=== PATIENT | male | born 1960 | race Caucasian/White ===

== ENCOUNTER 2024-11-28 08:30 | Inpatient (IN) | payer BC, OTHER ==
[~2024-11-28] VITALS: Ht 175.3 cm; Wt 104.5 kg
--- NOTE | 2024-11-28 09:44 | ED.PDOC ---
GI ASSESSMENT HPI Comments 63 year old male presents to the ED with chief complaint of rectal bleeding. Patient reports that he has been experiencing rectal bleeding with associated abdominal pain since yesterday. Patient relays that he had a recent colonoscopy performed [address] iDno Antony. Patient states the blood is bright red. Patient denies any N/V/D, dizziness, fever, chills, melena, or hematemesis. Chief Complaint: GI Bleed Time Seen by MD: 09:42 Reviewed Notes: Nurses Notes, Medications, Allergies Allergies: Coded Allergies: NO KNOWN ALLERGIES (Unverified , 11/28/24) Information Source: Patient Mode of Arrival: Ambulatory Timing: Days Duration: Since onset Prehospital treatment: None Quality: Cramping Vomitus: None Stool: Blood Streaked Severity: Moderate Recent: None Recent Hx of: GI Bleed Pain Location: Diffuse Modifying Factors: Nothing Associated sign and symptoms: Abdominal Pain, Blood in Stool Past Medical History PAST MEDICAL HISTORY: High Lipids, HTN Surgical History (Other): Colonoscopy Family History Family History: Reviewed,noncontributory to illness Social History Smoker: Non-Smoker Alcohol: Denies ETOH Use Drugs: Denies Drug Use Lives In: Home Constitutional: denies: chills, diaphoresis, fatigue, fever, malaise, sweats, weakness, others EENTM: denies: blurred vision, double vision, ear bleeding, ear discharge, ear drainage, ear pain, ear ringing, eye pain, eye redness, hearing loss, mouth pain, mouth swelling, nasal discharge, nose bleeding, nose congestion, nose p ain, photophobia, tearing, throat pain, throat swelling, voice changes, others Respiratory: denies: cough, hemoptysis, orthopnea, SOB at rest, shortness of breath, SOB with excertion, stridor, wheezing, others Cardiovascular: denies: chest pain, dizzy spells, diaphoresis, Dyspnea on exertion, edema, irregular heart beat, left arm pain, lightheadedness, palpitations, PND, syncope, others Gastrointestinal: reports: abdominal pain, rectal bleeding; denies: abdomen distended, blood streaked bowels, constipated, diarrhea, dysphagia, difficulty swallowing, hematemesis, melena, nausea, poor appetite, poor fluid intake, rectal pain, vomiting, others Genitourinary: denies: burning, dysuria, flank pain, frequency, hematuria, incontinence, penile discharge, penile sore, pain, testicle pain, testicle swelling, urgency, others Neurological: denies: dizziness, fainting, headache, left sided numbness, left sided weakness, numbness, paresthesia, pre-existing deficit, right sided numbness, right sided weakness, seizure, speech problems, tingling, tremors, weakness, others Musculoskeletal: denies: back pain, gout, joint pain, joint swelling, muscle pain, muscle stiffness, neck pain, others Integumetry: denies: bruises, change in color, change in hair/nails, dryness, laceration, lesions, lumps, rash, wounds, others Allergic/Immunocompromised: denies: Difficulty Healing, Frequent Infections, Hives, Itching, others Hematologic/Lymphatic: denies: anemia, blood clots, easy bleeding, easy bruising, swollen glands, others Endocrine: denies: excessive hunger, excessive sweating, excessive thirst, excessive urination, flushing, intolerance to cold, intolerance to heat, unexplained weight gain, unexplained weight loss, others Psychiatric: denies: anxiety, bipolar disorder, depression, hopeless, panic disorder, schizophrenia, sleepless, suicidal, others All Other Systems: Reviewed and Negative Physical Exam General Appearance: Moderate Distress, Normal HEENT: Normal ENT Inspection, PERRL/EOMI Neck: Full Range of Motion, Non-Tender, Normal, Normal Inspection Respiratory: Chest Non-Tender, Lungs Clear, No Accessory Muscle Use, No Respiratory Distress, Normal Breath Sounds Cardiovascular: No Edema, No JVD, No Murmur, No Gallop, Normal Peripheral Pulses, Regular Rate/Rhythm Breast Exam: Deferred Gastrointestinal: No Organomegaly, Non Tender, No Pulsatile Mass, Normal Bowel Sounds, Soft Genitalia: Deferred Pelvic: Deferred Rectal: Deferred Extremities: No calf tenderness, Normal capillary refill, Normal inspection, Normal range of motion, Non-tender, No pedal edema Musculoskeletal : Apperance: Normal Neurologic: Alert, certified personal chef II-XII nml as Tested, No Motor Deficits, Normal Affect, Normal Mood, No Sensory Deficits Cerebellar Function: Normal Reflexes: Normal Skin: Dry, Normal Color, Warm Peripheral Pulses: 3+ Radial (R), 3+ Radial (L) Lymphatic: No Adenopathy Was a procedure done? Was a procedure done?: No GI differential Dx Differential Diagnosis: Constipation, Diverticular disease, Esophagitis, Gastritis/PUD, Gastroenteritis X-Ray, Labs, Meds, VS Vital Signs Date Time Temp Pulse Resp B/P (MAP) Pulse Ox O2 Delivery O2 Flow Rate FiO2 11/28/24 08:40 98.2 81 18 152/90 (110) 98 98.2 Lab Test 11/28/24 09:30 Range/Units White Blood Count 13.1 H 4.4-10.8 10^3/uL Red Blood Count 6.02 H 4.5-5.90 10^6/uL Hemoglobin 17.1 13.5-17.5 g/dL Hematocrit 51.3 41.0-53.0 % Mean Corpuscular Volume 85.2 80.0-100.0 fL Mean Corpuscular Hemoglobin 28.4 28.0-32.0 pg Mean Corpuscular Hemoglobin Concent 33.4 32.0-36.0 g/dL Red Cell Distribution Width 14.1 11.8-14.3 % Platelet Count 267 140-450 10^3/uL Mean Platelet Volume 7.6 6.9-10.8 fL Neutrophils (%) (Auto) 83.0 H 37.0-80.0 % Lymphocytes (%) (Auto) 9.5 L 10.0-50.0 % Monocytes (%) (Auto) 6.0 0.0-12.0 % Eosinophils (%) (Auto) 1.0 0.0-7.0 % Basophils (%) (Auto) 0.5 0.0-2.0 % Neutrophils # (Auto) 10.8 H 1.6-8.6 10 ^3/uL Lymphocytes # (Auto) 1.2 0.4-5.4 10 ^3/uL Monocytes # (Auto) 0.8 0-1.3 10 ^3/uL Eosinophils # (Auto) 0.1 0-0.8 10 ^3/uL Basophils # (Auto) 0.1 0-0.2 10 ^3/uL Nucleated Red Blood Cells 0.1 % Sodium Level 137 136-145 mmol/L Potassium Level 3.9 3.5-5.1 mmol/L Chloride Level 103 98-107 mmol/L Carbon Dioxide Level 27 20-31 mmol/L Anion Gap 7 5-15 Blood Urea Nitrogen 16 9-23 mg/dL Creatinine 1.26 0.700-1.30 mg/dL Glomerular Filtration Rate Calc 64 >90 mL/min BUN/Creatinine Ratio 12.7 10.0-20.0 Serum Glucose 115 H 74-106 mg/dL Calcium Level 10.1 8.7-10.4 mg/dL Patient alert. Complaining of bright red blood per rectum. Possible colitis. Blood pressure slightly elevated. Saturation pristine on room air. WBC elevated. Establish intravenous access. Was given Flagyl. Had a colonoscopy done few weeks ago. Not sure whether the symptoms related to colonoscopy. GI consultation. Explained to the patient. Continue cardiac monitoring. Time of 1ST Reevaluation: 10:42 Reevaluation 1ST: Unchanged Patient Education/Counseling: Diagnosis, Treatment Family Education/Counseling: No Family Present Additional Information Previous visit documents reviewed: None The following tests were ordered, and results were reviewed by me: CBC, BMP Additional Information was gathered from interviewing the following independent historians: None I reviewed and agreed with the following test results read by other providers: None I discussed treatment and results with medical personnel and: Patient Departure 1 Departure Time of Disposition: 11:42 Impression: Primary Impression: Nonspecific colitis Additional Impressions: Hypertension Qualified Codes: I10 - Essential (primary) hypertension Rectal bleeding Disposition: ADMITTED INPATIENT Admit to: Med Surg Condition: Guarded Critical Care Note Critical Care Time?: No Stability Stability form required: No Heart Score Heart Score: Heart Score Response (Comments) Value History N/A 0 EKG N/A 0 Age N/A 0 Risk Factors N/A 0 Troponin N/A 0 Total 0 I personally scribed for GUERO JEROME MD ([email or web address]) on 11/28/24 at 09:44. Electronically submitted by Candelario Best ([email or web address]). GUERO JEROME MD Nov 28, 2024 09:44
[2024-11-28 09:50] LABS: Basophils # (auto) 0.1 10 ^3/uL (0-0.2); Basophils % (auto) 0.5 % (0.0-2.0); Eosinophils # (auto) 0.1 10 ^3/uL (0-0.8); Hematocrit 51.3 % (41.0-53.0); Hemoglobin 17.1 g/dL (13.5-17.5); Lymphocytes # (auto) 1.2 10 ^3/uL (0.4-5.4); Lymphocytes % (auto) 9.5 % (10.0-50.0); Mean Corpuscular Hemoglobin 28.4 pg (28.0-32.0); Mean Corpuscular Hgb Conc. 33.4 g/dL (32.0-36.0); Mean Corpuscular Volume 85.2 fL (80.0-100.0); Monocytes # (auto) 0.8 10 ^3/uL (0-1.3); Neutrophils # (auto) 10.8 10 ^3/uL (1.6-8.6); Nucleated Red Blood Cells % 0.1 %; Platelet Count (auto) 267 10^3/uL (140-450); Red Blood Cells 6.02 10^6/uL (4.5-5.90); Red Cell Distribution Width 14.1 % (11.8-14.3); White Blood Cell 13.1 10^3/uL (4.4-10.8)
[2024-11-28 10:05] LABS: Chloride 103 mmol/L (98-107); Potassium 3.9 mmol/L (3.5-5.1); Sodium 137 mmol/L (136-145)
[2024-11-28 10:06] LABS: Anion Gap 7 (5-15); Calcium 10.1 mg/dL (8.7-10.4); Carbon Dioxide 27 mmol/L (20-31)
[2024-11-28 10:11] LABS: BUN/Creatinine Ratio 12.7 (10.0-20.0); Blood Urea Nitrogen 16 mg/dL (9-23)
[2024-11-28 10:12] LABS: Glucose 115 mg/dL (74-106)
[2024-11-28] MEDS ORDERED: LISI-285 PO (13:20)
[2024-11-28] MEDS ORDERED: ATOR10TA52 PO (13:20)
[2024-11-28] MEDS: SODIUM CHLORIDE 0.9% 1,000 ML IV ONE ×2 (13:30→13:36)
[2024-11-28] MEDS: LISINOPRIL 20 MG TAB PO ONE (13:36)
[2024-11-28] MEDS: metroNIDAZOLE 500MG/100ML 100 ML IV SCH (14:06)
[2024-11-28] MEDS: cefTRIAXone 1GM/50ML D5W 50 ML IV ONE (14:06)
--- NOTE | 2024-11-28 15:12 | DVH ---
Exam: CT CT AB PEL WO CON-NO ORAL OR IV History: abdominal pain H/O diverticulosis Comparison Study: None available at time of dictation. TECHNIQUE: Multidetector CT of the abdomen was performed from lung bases to pubic symphysis. Imaging was performed without IV contrast. Axial, coronal and sagittal multiplanar reformats were obtained fr om the axial data set by the technologist. Radiation Dose Information: CT Dose: CTDI volume is 13.63 mGy. Dose-length product is 835.34 mGy*cm FINDINGS: Evaluation of solid organs is limited due to lack of intravenous contrast use. Findings: Lung Bases: No acute or significant lung base finding. Normal heart size. No pleural or pericardial effusion. Liver: The liver is normal in size. No focal lesions. Gallbladder and Biliary Tree: Unremarkable Spleen: Unremarkable Pancreas: The pancreas is grossly normal in appearance. Adrenal Glands: Unremarkable Kidneys: Kidneys are grossly normal without calculi or hydronephrosis. Bladder: Grossly unremarkable for degree of distention. Bowel: The stomach is grossly normal in appearance. Small bowel is normal in caliber and distribution . Large stool burden in the right colon. Mucosal thickening of the left colon and pericolonic mucosal stranding. There do not appear to be diverticuli in this region. There is no free air or free fluid. The appendix is not visualized; however, no secondary findings of acute appendicitis identified. Ascites: Absent Lymphadenopathy: No mesenteric, retroperitoneal or periportal lymphadenopathy. Abdominal Wall and Mesentery: Unremarkable. Vasculature: The visualized abdominal aorta is normal in size and caliber. Evaluation of abdominal a nd pelvic vessels is limited due to lack of intravenous contrast. Pelvic Organs: Unremarkable Musculoskeletal: No aggressive focal bony lesions, acute fractures or dislocation. Soft tissues: Unremarkable IMPRESSION: 1. Large stool burden in the right colon 2. Mucosal thickening in the left colon with pericolonic stranding in the mesenteric fat without free air or free fluid. There is no apparent diverticuli in this region. Findings raise the question of c olitis. Radiation optimization: All CT scans at this facility use at least one of these dose optimization francis hniques: automated exposure control mA and/or kV adjustment per patient size (includes targeted exam s where dose is matched to clinical indication) or iterative reconstruction.
--- NOTE | 2024-11-28 16:09 | DVHHP2 ---
History of Present Illness Reason for Visit: Rectal bleeding History of Present Illness Myron Jiménez is a 63-year-old male with history of hypertension and hyperlipemia, who comes in with complaints of rectal bleeding. Patient states he had a colonoscopy completed on 11/16/2024 by [facility]. He was told to come to the ER if he experiences any bleeding. He states the bleeding began last night and continued this morning so he came to the ER. Cardiovascular: HTN, hyperipidemia Past Surgical History: Other (Gastric ulcer surgery) Smoke: No ALCOHOL: rare Drugs: None Lives: with Family Domestic Violence: Neg Review of Systems Constitutional: No: Fever, Chills, Sweats, Weakness, Malaise, Other Eyes: No: Pain, Vision change, Conjunctivae inflammation, Eyelid inflammation, Other, Redness ENT: No: Ear pain, Ear discharge, Nose pain, Nose discharge, Nose congestion, Mouth pain, Mouth swelling, Throat pain, Throat swelling, Other Respiratory: No: Cough, Dry, Shortness of breath, SOB with excertion, Wheezing, Hemoptysis, Pleuritic Pain, Sputum, Wheezing, Other Cardiovascular: No: Chest Pain, Palpitations, Orthopnea, Paroxysmal Noc. Dyspnea, Edema, Lt Headedness, Other Gastrointestinal: Abdominal Pain, Melena; No: Nausea, Vomiting, Diarrhea, Constipation, Hematochezia, Other Genitourinary: No Dysuria, No Frequency, No Incontinence, No Hematuria, No Retention, No Other Musculoskeletal: No: other, neck pain, shoulder pain, arm pain, back pain, hand pain, leg pain, foot pain Skin: No: Rash, Lesions, Jaundice, Bruising, Other Neurological: No: Weakness, Numbness, Incoordination, Change in speech, Confusion, Seizures, Other Allergies: Coded Allergies: NO KNOWN ALLERGIES (Unverified , 11/28/24) Medications Current Medications Medications Dose Ordered Sig/Winter Route Start Time Stop Time Status Last Admin Dose Admin Lisinopril 20 mg DAILY PO 11/29/24 10:00 Metronidazole 100 ml @ 100 mls/hr Q8HR IV 11/28/24 14:00 11/28/24 14:06 100 MLS/HR Ceftriaxone Sodium 50 ml @ 100 mls/hr DAILY@09 IV 11/29/24 09:00 Hydrochlorothiazide 12.5 mg DAILY PO 11/29/24 10:00 Exam Vital Signs Vital Signs Date Time Temp Pulse Resp B/P (MAP) Pulse Ox O2 Delivery O2 Flow Rate FiO2 11/28/24 13:36 108/107 11/28/24 13:08 98.6 82 16 97 98.6 11/28/24 13:08 Room Air General Appearance: Alert, Oriented X3, Cooperative, moderate distress HEENT: Atraumatic, PERRLA, Mucous membr. moist/pink Respiratory: Clear to auscultation, Normal air movement Cardiovascular: Regular rate, Normal S1, Normal S2, No murmurs Abdominal: Normal bowel sounds, Other (c/O abdominal pain) Extremities: No clubbing, No cyanosis, No edema, Normal pulses, No tende rness/swelling Skin: No rashes, No breakdown, No significant lesion Neuro: Normal gait, Normal speech, Strength at 5/5 X4 ext, Normal tone Psych/Mental Status: Mental status NL, Mood NL Labs/Xrays Labs Test 11/28/24 09:30 Range/Units White Blood Count 13.1 H 4.4-10.8 10^3/uL Red Blood Count 6.02 H 4.5-5.90 10^6/uL Hemoglobin 17.1 13.5-17.5 g/dL Hematocrit 51.3 41.0-53.0 % Mean Corpuscular Volume 85.2 80.0-100.0 fL Mean Corpuscular Hemoglobin 28.4 28.0-32.0 pg Mean Corpuscular Hemoglobin Concent 33.4 32.0-36.0 g/dL Red Cell Distribution Width 14.1 11.8-14.3 % Platelet Count 267 140-450 10^3/uL Mean Platelet Volume 7.6 6.9-10.8 fL Neutrophils (%) (Auto) 83.0 H 37.0-80.0 % Lymphocytes (%) (Auto) 9.5 L 10.0-50.0 % Monocytes (%) (Auto) 6.0 0.0-12.0 % Eosinophils (%) (Auto) 1.0 0.0-7.0 % Basophils (%) (Auto) 0.5 0.0-2.0 % Neutrophils # (Auto) 10.8 H 1.6-8.6 10 ^3/uL Lymphocytes # (Auto) 1.2 0.4-5.4 10 ^3/uL Monocytes # (Auto) 0.8 0-1.3 10 ^3/uL Eosinophils # (Auto) 0.1 0-0.8 10 ^3/uL Basophils # (Auto) 0.1 0-0.2 10 ^3/uL Nucleated Red Blood Cells 0.1 % Sodium Level 137 136-145 mmol/L Potassium Level 3.9 3.5-5.1 mmol/L Chloride Level 103 98-107 mmol/L Carbon Dioxide Level 27 20-31 mmol/L Anion Gap 7 5-15 Blood Urea Nitrogen 16 9-23 mg/dL Creatinine 1.26 0.700-1.30 mg/dL Glomerular Filtration Rate Calc 64 >90 mL/min BUN/Creatinine Ratio 12.7 10.0-20.0 Serum Glucose 115 H 74-106 mg/dL Calcium Level 10.1 8.7-10.4 mg/dL Exam: CT CT AB PEL WO CON-NO ORAL OR IV FINDINGS: Evaluation of solid organs is limited due to lack of intravenous contrast use. Findings: Lung Bases: No acute or significant lung base finding. Normal heart size. No pleural or pericardial effusion. Liver: The liver is normal in size. No focal lesions. Gallbladder and Biliary Tree: Unremarkable Spleen: Unremarkable Pancreas: The pancreas is grossly normal in appearance. Adrenal Glands: Unremarkable Kidneys: Kidneys are grossly normal without calculi or hydronephrosis. Bladder: Grossly unremarkable for degree of distention. Bowel: The stomach is grossly normal in appearance. Small bowel is normal in caliber and distribution. Large stool burden in the right colon. Mucosal thickening of the left colon and pericolonic mucosal stranding. There do not appear to be diverticuli in this region. There is no free air or free fluid. The appendix is not visualized; however, no secondary findings of acute appendicitis identified. Ascites: Absent Lymphadenopathy: No mesenteric, retroperitoneal or periportal lymphadenopathy. Abdominal Wall and Mesentery: Unremarkable. Vasculature: The visualized abdominal aorta is normal in size and caliber. E valuation of abdominal and pelvic vessels is limited due to lack of intravenous contrast. Pelvic Organs: Unremarkable Musculoskeletal: No aggressive focal bony lesions, acute fractures or dislocation. Soft tissues: Unremarkable IMPRESSION: 1. Large stool burden in the right colon 2. Mucosal thickening in the left colon with pericolonic stranding in the mesenteric fat without free air or free fluid. There is no apparent diverticuli in this region. Findings raise the question of colitis. Assessment/Plan Assessment/Plan Assessment: Rectal bleeding, Possible diverticulitis, Possible hemorrhoids, Hypertension, Hyperlipidemia, Plan: Admit to Med-Surg, GI consult, IV hydration, NPO, IV antibiotics, Home medications reconciled, Plan discussed with: Patient My Orders Orders - DAYANNA ENGLAND Procedure Category Date Status Time Lisinopril Tablet PHA 11/29/24 In Process (Zestril Tablet) 10:00 Sodium Chloride 0.9% PHA 11/28/24 In Process 13:30 Ct Ab Pel Wo Con-No CT 11/28/24 Resulted Oral Or Iv 13:16 Metronidazole PHA 11/28/24 In Process 500mg/100ml (Flagyl 14:00 Ceftriaxone 1gm/50ml PHA 11/29/24 In Process D5w (Rocephin) 09:00 Hydrochlorothiazide PHA 11/29/24 In Process Tablet (Hydrochlorot 10:00 *[facility] CONS 11/28/24 Transmitted 15:04 Npo (Nothing By DIET 11/28/24 Transmitted Mouth) Diet Dinner Date of Service: Nov 28, 2024 Billing Provider: DAYANNA ENGLAND Common Visit Codes: [id number] INP/OBS CARE (MOD) DAYANNA ENGLAND Nov 28, 2024 16:09
[2024-11-28] MEDS ORDERED: MORPHINE SULFATE INJ 2 MG/ml SYRG IV PRN (16:15)
[2024-11-28] MEDS ORDERED: HYDROcodone-ACET 5/325MG TAB PO PRN (16:15)
[2024-11-28] MEDS ORDERED: ONDANSETRON HCL 4 MG/2 ML VIAL IV PRN (16:15)
--- NOTE | 2024-11-28 16:26 | DVHINCON2 ---
GI Consult Consult Note Date of Consultation: 11/28/24 Chief Complaint: Abdominal pain Referring Physician: Dr. Bridges H&P: 63M hx diverticulosis, hemorrhoids who presents to the ER for complaints of abdominal cramping and rectal bleeding for 1 day prior to admission. had an EGD/Colonoscopy with Dr. Mae Antony 11/15/2024. Colonoscopy pertinent for moderate sigmoid diverticulosis, internal hemorrhoids and 2 pedunculated polyps - one measured 5-7mm and the other 15-25mm both removed with hot snare. After the colonoscopy he states he felt fine and had no symptoms until day prior to admission which was 11/27/24. States he started feeling abdominal cramping in his left lower side followed by passage of blood per rectum. Had mulitple episodes of diarrhea with abdominal pain and most recent rectal bleeding was this morning. No further bleeding since that time but does report ongoing abdominal pain and cramps. Denies fevers, chills. CT done on admission showed findings concerning for left sided colitis but based on colonoscopy findings is more likely acute diverticulitis. Denies blood thinners. Past Medical History: HTN Past Surgical History: No pertinent surgical history Social History: NO smoking, drinking ETOH and use of illegal drugs. Family History: Denies history of GI related malignancies. Review of Systems: Constitutional: no fever, chill, weight loss HEENT: no eye pain, no hearing loss, no oral lesion, no scleral icterus Heart: no chest pain, no chest pressure Lung: no cough, no dyspnea with exertion Abdomen: see HPI : no pain with urination, normal appearing urine Musculoskeletal: no joint pain, no muscle pain Neurological: no seizure, no loss of sensation, no weakness in extremities Pysch: no depression, no anxiety Derm: no rash, no jaundice Physical exam: General: NAD, AAOX3 HEENT: no scleral icterus, normal hearing, gums without lesions or bleeding, oropharynx clear without erythema or exudate. Neck: Supple without enlargement of the thyroid, or lymphadenopathy. Chest: Normal size and shape, no tenderness, nonlabored breathing. Heart: Pulses normal. Regular rate. Abdomen: non-distended, tenderness to palpation leobardo-umbilically and left sided Extremities: no edema, no cyanosis Skin: No rashes, No jaundice Labs: Laboratory Tests Test 11/28/24 09:30 Range/Units White Blood Count 13.1 H 4.4-10.8 10^3/uL Red Blood Count 6.02 H 4.5-5.90 10^6/uL Hemoglobin 17.1 13.5-17.5 g/dL Hematocrit 51.3 41.0-53.0 % Mean Corpuscular Volume 85.2 80.0-100.0 fL Mean Corpuscular Hemoglobin 28.4 28.0-32.0 pg Mean Corpuscular Hemoglobin Concent 33.4 32.0-36.0 g/dL Red Cell Distribution Width 14.1 11.8-14.3 % Platelet Count 267 140-450 10^3/uL Mean Platelet Volume 7.6 6.9-10.8 fL Neutrophils (%) (Auto) 83.0 H 37.0-80.0 % Lymphocytes (%) (Auto) 9.5 L 10.0-50.0 % Monocytes (%) (Auto) 6.0 0.0-12.0 % Eosinophils (%) (Auto) 1.0 0.0-7.0 % Basophils (%) (Auto) 0.5 0.0-2.0 % Neutrophils # (Auto) 10.8 H 1.6-8.6 10 ^3/uL Lymphocytes # (Auto) 1.2 0.4-5.4 10 ^3/uL Monocytes # (Auto) 0.8 0-1.3 10 ^3/uL Eosinophils # (Auto) 0.1 0-0.8 10 ^3/uL Basophils # (Auto) 0.1 0-0.2 10 ^3/uL Nucleated Red Blood Cells 0.1 % Sodium Level 137 136-145 mmol/L Potassium Level 3.9 3.5-5.1 mmol/L Chloride Level 103 98-107 mmol/L Carbon Dioxide Level 27 20-31 mmol/L Anion Gap 7 5-15 Blood Urea Nitrogen 16 9-23 mg/dL Creatinine 1.26 0.700-1.30 mg/dL Glomerular Filtration Rate Calc 64 >90 mL/min BUN/Creatinine Ratio 12.7 10.0-20.0 Serum Glucose 115 H 74-106 mg/dL Calcium Level 10.1 8.7-10.4 mg/dL Vital Signs Date Time Temp Pulse Resp B/P (MAP) Pulse Ox O2 Delivery O2 Flow Rate FiO2 11/28/24 13:36 108/107 11/28/24 13:08 98.6 82 16 97 98.6 11/28/24 13:08 Room Air Imaging: CT showing findings of left sided colitis Assessment: 63M hx diverticulosis, hemorrhoids who presents to the ER for complaints of abdominal cramping and rectal bleeding for 1 day prior to admission. had an EGD/Colonoscopy with Dr. Mae Antony 11/15/2024. Colonoscopy pertinent for moderate sigmoid diverticulosis, internal hemorrhoids and 2 pedunculated polyps - one measured 5-7mm and the other 15-25mm both removed with hot snare. After the colonoscopy he states he felt fine and had no symptoms until day prior to admission which was 11/27/24. Suspect presentation is secondary to acute diverticulitis given the presence of moderate sigmoid diverticulosis on recent colonoscopy. While post-polypectomy syndrome or thermal damage from hot snare cautery that was done in the sigmoid is possible, he is far out of the window for that to be expected. Rectal bleeding is possibly secondary to the diverticulitis vs. hemorrhoids. Hgb remains stable and is not having a clinically significant GI bleed. Plan: - NPO and bowel rest for now - IVF - Pain control - Currently on ceftriaxone and flagyl - continue supportive care for likely acute diverticulitis. If pain resolves or does not intensify then can discharge on course of antibiotics with slow advancement of diet over the next 7 days. - if pain worsens over the next 72 hours then consider repeat CT scan to evaluate for any complications of diverticulitis such as abscess or perforation. - Please page back with any changes in the clinical course. Should follow up with [facility] within 4 weeks of discharge to review pathology from recent EGD/colonoscopy and to follow up on symptoms. Date of Service: Nov 28, 2024 Billing Provider: TENA KLEIN MD Common Visit Codes: [id number] INP/OBS CARE (MOD) Consultation Codes: [id number] CONSULT <45MIN TENA KLEIN MD Nov 28, 2024 16:26
[2024-11-28 18:49] LABS: Lactic Acid w/Reflex 2.3 mmol/L (0.4-2.0)
[2024-11-28 20:30] VITALS: RESP 15; O2SAT 96
[2024-11-28 20:34] VITALS: BP 122/74; PULSE 81; RESP 20; TEMP 97.7; O2SAT 97
[2024-11-28] MEDS: ATORVASTATIN 20 MG TAB PO SCH (21:36)
[2024-11-29 04:30] VITALS: BP 127/79; PULSE 74; RESP 20; TEMP 97.8; O2SAT 98
[2024-11-29 07:10] LABS: Alanine Aminotransferase 33 U/L (7-40); Albumin 4.5 g/dL (3.2-4.8); Alkaline Phosphatase 55 U/L (46-116); Anion Gap 7 (5-15); Aspartate Aminotransferase 17 U/L (13-40); BUN/Creatinine Ratio 19.1 (10.0-20.0); Bilirubin, Total 0.8 mg/dL (0.2-1.0); Blood Urea Nitrogen 21 mg/dL (9-23); Calcium 9.6 mg/dL (8.7-10.4); Carbon Dioxide 27 mmol/L (20-31); Chloride 103 mmol/L (98-107); Glucose 101 mg/dL (74-106); Potassium 3.7 mmol/L (3.5-5.1); Sodium 137 mmol/L (136-145)
[2024-11-29 07:11] LABS: Basophils # (auto) 0.1 10 ^3/uL (0-0.2); Basophils % (auto) 0.6 % (0.0-2.0); Eosinophils # (auto) 0.2 10 ^3/uL (0-0.8); Eosinophils % (auto) 1.1 % (0.0-7.0); Hematocrit 43.5 % (41.0-53.0); Hemoglobin 15.1 g/dL (13.5-17.5); Lymphocytes # (auto) 1.3 10 ^3/uL (0.4-5.4); Lymphocytes % (auto) 8.9 % (10.0-50.0); Mean Corpuscular Hemoglobin 29.2 pg (28.0-32.0); Mean Corpuscular Hgb Conc. 34.8 g/dL (32.0-36.0); Monocytes # (auto) 1.1 10 ^3/uL (0-1.3); Monocytes % (auto) 7.4 % (0.0-12.0); Neutrophils # (auto) 12.4 10 ^3/uL (1.6-8.6); Nucleated Red Blood Cells % 0.2 %; Platelet Count (auto) 231 10^3/uL (140-450); Red Blood Cells 5.18 10^6/uL (4.5-5.90); Red Cell Distribution Width 13.5 % (11.8-14.3); White Blood Cell 15.1 10^3/uL (4.4-10.8)
[2024-11-29 07:32] LABS: Total Protein 7.1 g/dL (5.7-8.2)
[2024-11-29 09:00] VITALS: BP 113/78; PULSE 77; RESP 16; TEMP 97.4; O2SAT 96
[2024-11-29] MEDS: LISINOPRIL 20 MG TAB PO SCH (09:10)
[2024-11-29] MEDS: hydroCHLOROthiazide 25 MG TAB PO SCH (09:10)
[2024-11-29] MEDS: cefTRIAXone 1GM/50ML D5W 50 ML IV SCH (09:11)
[2024-11-29] MEDS: ACETAMINOPHEN 325 MG TAB PO PRN (09:11)
[2024-11-29 13:00] VITALS: BP 107/69; PULSE 75; RESP 16; TEMP 97.6; O2SAT 94
[2024-11-29] MEDS ORDERED: ACET-1882 PO (14:17)
[2024-11-29] MEDS ORDERED: PANT40TA2 PO (14:17)
[2024-11-29] MEDS ORDERED: CIPR-173 PO (15:12)
--- NOTE | 2024-11-29 15:58 | DVHDSRES ---
Discharge Summary Date of Admission Resident Creating Document: CHARLEEN GALE RESIDENT Nov 28, 2024 at 16:03 Date of Discharge: Nov 29, 2024 Admitting Diagnosis GI bleeding Labs/Diagnostic Data: Laboratory Results Test 11/29/24 10:30 11/29/24 06:25 11/28/24 19:39 11/28/24 17:55 Stool Occult Blood Negative (Negative) Stool Occult Blood Sample #3 (Negative) White Blood Count 15.1 10^3/uL (4.4-10.8) Red Blood Count 5.18 10^6/uL (4.5-5.90) Hemoglobin 15.1 g/dL (13.5-17.5) Hematocrit 43.5 % (41.0-53.0) Mean Corpuscular Volume 84.0 fL (80.0-100.0) Mean Corpuscular Hemoglobin 29.2 pg (28.0-32.0) Mean Corpuscular Hemoglobin Concent 34.8 g/dL (32.0-36.0) Red Cell Distribution Width 13.5 % (11.8-14.3) Platelet Count 231 10^3/uL (140-450) Mean Platelet Volume 7.4 fL (6.9-10.8) Neutrophils (%) (Auto) 82.0 % (37.0-80.0) Lymphocytes (%) (Auto) 8.9 % (10.0-50.0) Monocytes (%) (Auto) 7.4 % (0.0-12.0) Eosinophils (%) (Auto) 1.1 % (0.0-7.0) Basophils (%) (Auto) 0.6 % (0.0-2.0) Neutrophils # (Auto) 12.4 10 ^3/uL (1.6-8.6) Lymphocytes # (Auto) 1.3 10 ^3/uL (0.4-5.4) Monocytes # (Auto) 1.1 10 ^3/uL (0-1.3) Eosinophils # (Auto) 0.2 10 ^3/uL (0-0.8) Basophils # (Auto) 0.1 10 ^3/uL (0-0.2) Nucleated Red Blood Cells 0.2 % Sodium Level 137 mmol/L (136-145) Potassium Level 3.7 mmol/L (3.5-5.1) Chloride Level 103 mmol/L (98-107) Carbon Dioxide Level 27 mmol/L (20-31) Anion Gap 7 (5-15) Blood Urea Nitrogen 21 mg/dL (9-23) Creatinine 1.10 mg/dL (0.700-1.30) Glomerular Filtration Rate Calc 76 mL/min (>90) BUN/Creatinine Ratio 19.1 (10.0-20.0) Serum Glucose 101 mg/dL (74-106) Calcium Level 9.6 mg/dL (8.7-10.4) Total Bilirubin 0.8 mg/dL (0.2-1.0) Aspartate Amino Transferase (AST) 17 U/L (13-40) Alanine Aminotransferase (ALT) 33 U/L (7-40) Alkaline Phosphatase 55 U/L (46-116) Total Protein 7.1 g/dL (5.7-8.2) Albumin 4.5 g/dL (3.2-4.8) Lactic Acid Level 1.5 mmol/L (0.4-2.0) Other Laboratory Tests 11/29/24 06:25 Brief Hx & Hospital Course: A 63M with a history of diverticulosis and hemorrhoid presented to the ER with complaints of abdominal cramping and rectal bleeding for one day. He had undergone an EGD/colonoscopy on 11/15/24, which showed moderate sigmoid diverticulosis, internal hemorrhoids, and two pedunculated polyps removed via hot snare. He reported no symptoms until 11/27/24, when he developed left lower quadrant pain followed by passage of blood per rectum. He also had multiple episodes of diarrhea with abdominal pain, though rectal bleeding resolved the morning of admission. A CT scan showed findings concerning for left-sided colitis; however, based on prior colonoscopy findings, the presentation was most consistent with acute diverticulitis. Hemoglobin remained stable, and there were no signs of clinically significant GI bleeding. SOB negative Hospital Management included IV fluids, Pain control as needed, Empiric antibiotic therapy with Ceftriaxone and Flagyl . The patient's symptoms improved with supportive care, and he was stable for discharge on oral antibiotics with dietary advancement over the next week. Discharge Medications: Acetaminophen 325 m mg PO Q6H PRN for pain (10 days) Ciprofloxacin 500 mg: PO BID for 7 days Pantoprazole 40 mg: PO daily for 30 days Atorvastatin 10 mg: PO HS (continued) Lisinopril/HCTZ: 1 tab PO daily (continued) Discharge Instructions: Continue oral antibiotics (Ciprofloxacin and Metronidazole) for 7 days Advance diet slowly over the next 7 days Monitor for recurrence of pain, worsening diarrhea, or new rectal bleeding Follow up with Gastroenterology in 4 weeks to review pathology from the recent EGD/colonoscopy and monitor symptoms Return to the ED if symptoms worsen, severe pain develops, or signs of GI bleeding reappear Condition at Discharge: Stable, tolerating oral intake, pain controlled, and no further rectal bleeding. General Appearance: Alert, Oriented X3, Cooperative, moderate distress HEENT: Atraumatic, PERRLA, Mucous membr. moist/pink Respiratory: Clear to auscultation, Normal air movement Cardiovascular: Regular rate, Normal S1, Normal S2, No murmurs Abdominal: Normal bowel sounds, Other (c/O abdominal pain) Extremities: No clubbing, No cyanosis, No edema, Normal pulses, No tenderness/swelling Skin: No rashes, No breakdown, No significant lesion Neuro: Normal gait, Normal speech, Strength at 5/5 X4 ext, Normal tone Psych/Mental Status: Mental status NL, Mood NL Case discussed with Dr Wagoner Consults/Reason for consult gastro group due to GI bleeding Operations or Procedures Exam: CT CT AB PEL WO CON-NO ORAL OR IV History: abdominal pain H/O diverticulosis Comparison Study: None available at time of dictation. TECHNIQUE: Multidetector CT of the abdomen was performed from lung bases to pubic symphysis. Imaging was performed without IV contrast. Axial, coronal and sagittal multiplanar reformats were obtained from the axial data set by the technologist. Radiation Dose Information: CT Dose: CTDI volume is 13.63 mGy. Dose-length product is 835.34 mGy*cm FINDINGS: Evaluation of solid organs is limited due to lack of intravenous contrast use. Findings: Lung Bases: No acute or significant lung base finding. Normal heart size. No pleural or pericardial effusion. Liver: The liver is normal in size. No focal lesions. Gallbladder and Biliary Tree: Unremarkable Spleen: Unremarkable Pancreas: The pancreas is grossly normal in appearance. Adrenal Glands: Unremarkable Kidneys: Kidneys are grossly normal without calculi or hydronephrosis. Bladder: Grossly unremarkable for degree of distention. Bowel: The stomach is grossly normal in appearance. Small bowel is normal in caliber and distribution. Large stool burden in the right colon. Mucosal thickening of the left colon and pericolonic mucosal stranding. There do not appear to be diverticuli in this region. There is no free air or free fluid. The appendix is not visualized; however, no secondary findings of acute appendicitis identified. Ascites: Absent Lymphadenopathy: No mesenteric, retroperitoneal or periportal lymphadenopathy. Abdominal Wall and Mesentery: Unremarkable. Vasculature: The visualized abdominal aorta is normal in size and caliber. Evaluation of abdominal and pelvic vessels is limited due to lack of intravenous contrast. Pelvic Organs: Unremarkable Musculoskeletal: No aggressive focal bony lesions, acute fractures or dislocation. Soft tissues: Unremarkable IMPRESSION: 1. Large stool burden in the right colon 2. Mucosal thickening in the left colon with pericolonic stranding in the mesenteric fat without free air or free fluid. There is no apparent diverticuli in this region. Findings raise the question of colitis. Condition at Discharge: Stable Final Diagnosis/Problems List GI bleeding? Acute gastroenterocolitis possible bacterial intractable abdominal pain s/p colonosocpy sp polyps resection Mucosal thickening in the left colon with pericolonic stranding in the mesenteric fat without free air or free fluid Discharge Disposition: Home Discharge Instruct/Medications Diet: Consistent carbohydrate, Cardiac 2g Na,low cholest Activity: Light activity Follow Up/Referral: fu with gastro group Medications: see prescription Discharge Statement: "Patient was advised to return to the ER or call 911 if any headaches, dizziness, shortness of breath, chest pain, abdominal pain, bleeding, fevers, or worsening of medical condition. Patient was counseled about treatment plan, medications, possible side effects, patientverbalized understanding. All questions were answered to the best of my ability. This discharge took greater then 30 minutes in planning, reviewing documentation, counseling the patient, and discussing with other team members." ASSESSMENT ASSESSMENT Assessment GI bleeding? intractable abdominal pain s/p colonosocpy sp polyps resection CHARLEEN GALE RESIDENT Nov 29, 2024 15:58
[2024-11-30 10:25] LABS: Hepatitis B Surface Antigen Negative (Negative); Hepatitis C Antibody Negative (Negative)
== END 2024-11-29 16:23 | disposition home or self-care (01) | DRG 373 ==
LOC: ER 08:30 → OVERFLOW 16:03 → EAST 11-29 03:58
PROVIDERS: ADMIT Internal Medicine; ATTEND Emergency Medicine
DX: A04.9 Bacterial intestinal infection, unspecified (principal); I10 Essential (primary) hypertension; E78.5 Hyperlipidemia, unspecified; Z87.11 Personal history of peptic ulcer disease
CPT/HCPCS: 36415; 74176; 80048; 80053; 82270; 83605; 85025; 86803; 87340; 93306; 96365; G0378; J3490